=== PATIENT | male | born 1975 | race Caucasian/White ===

== ENCOUNTER 2016-10-03 11:44 | Emergency (ER) | payer OTHER ==
[~2016-10-03] VITALS: Ht 167.6 cm; Wt 74.2 kg
[2016-10-03 11:52] VITALS: BP 149/88; PULSE 62; RESP 16; TEMP 97.7; O2SAT 100
[2016-10-03 12:07] LABS: BLOOD, URINE LARGE (NEG); GLUCOSE,URINE NEG (NEG); KETONE, URINE NEG (NEG); NITRITE,URINE NEG (NEG)
[2016-10-03 12:09] LABS: METHOD OF COLLECTION CLEAN CATCH; URINE COLOR YELLOW (YELLW/STRAW)
[2016-10-03 12:12] LABS: COMMENT (UR) CULT NOT INDICATED; CULTURE IF INDICATED CULT NOT INDICATED
[2016-10-03] MEDS ORDERED: SODIUM CHLORIDE 0.9% FLUSH 10 ML FLUSH IV FLUSH PRN (12:45)
[2016-10-03] MEDS ORDERED: DICYCLOMINE HCL 20 MG/2 ML VIAL IM ONE (12:45)
[2016-10-03] MEDS ORDERED: ONDANSETRON HCL 4 MG/2 ML VIAL IVP ONE (12:45)
[2016-10-03] MEDS ORDERED: PANTOPRAZOLE SODIUM 40 MG VIAL IVP ONE (12:45)
--- NOTE | 2016-10-03 12:50 | PD ---
HPI . Abdominal pain Chief Complaint: Abdominal Pain Time Seen by Provider: 12:44 Travel History International Travel<30 days: No Contact w/Intl Traveler<30days: No Traveled to known affect area: No History of Present Illness HPI Patient presents with abdominal pain which started about 7:00 this morning. He describes upper abdominal pain. He states that it is sharp and is rated as 10/ 10. Pepto-Bismol caused no relief. As no exacerbating factors. He states his pain is getting progressively worse. It is associated with nausea but no vomiting or diarrhea or constipation. Last normal bowel movement was this morning. He denies any urinary tract symptoms. He denies any previous similar history. [facility] Past Medical History Medical History: Denies Significant Hx Diminished Hearing: No Tetanus Vaccination: Unknown Past Surgical History Surgical History: No Previous Surgery Social History Alcohol Use: Yes (SOC) Tobacco Use: Yes (1 PPD) Substance Use: No Allergies-Medications (Allergen,Severity, Reaction): Coded Allergies: No Known Allergies (Unverified , 10/03/16) Reported Meds & Prescriptions Reported Meds & Active Scripts Active No Active Prescriptions or Reported Medications Review of Systems Except as stated in HPI: all other systems reviewed are Neg General / Constitutional: No: Fever, Chills Gastrointestinal: Positive: Nausea, Abdominal Pain, No: Vomiting, Diarrhea, Constipation Genitourinary: No: Urgency, Frequency, Dysuria Physical Exam Narrative GENERAL: Awake and alert in no acute distress. SKIN: Warm and dry. HEAD: Atraumatic. Normocephalic. EYES: Pupils equal and round. Sclera are anicteric. Extraocular muscle intact. ENT: No nasal bleeding or discharge. Mucous membranes pink and moist. NECK: Trachea midline. Neck is supple. CARDIOVASCULAR: Regular rate and rhythm. Heart sounds are normal. RESPIRATORY: No accessory muscle use. Lungs are clear with full air movement throughout. GASTROINTESTINAL: Abdomen soft. Bowel sounds are increased. He has diffuse, mild upper abdominal tenderness. Negative Clark sign. Nondistended. MUSCULOSKELETAL: No obvious deformities. No edema. NEUROLOGICAL: Awake and alert. No obvious cranial nerve deficits. Motor grossly within normal limits. Normal speech. PSYCHIATRIC: Appropriate mood and affect; insight and judgment normal. Data Data Last Documented VS Vital Signs Date Time Temp Pulse Resp B/P Pulse Ox O2 Delivery O2 Flow Rate FiO2 10/03/16 11:52 97.7 62 16 149/88 100 Orders Urinalysis - C+S If Indicated (10/03/16 11:48) Complete Blood Count With Diff (10/03/16 12:44) Comprehensive Metabolic Panel (10/03/16 12:44) Lipase (10/03/16 12:44) Ct Abd/Pel W Iv Contrast(Rout) (10/03/16 12:44) Iv Access Insert/Monitor (10/03/16 12:44) Ondansetron Inj (Zofran Inj) (10/03/16 12:45) Pantoprazole Inj (Protonix Inj) (10/03/16 12:45) Sodium Chloride 0.9% Flush (Ns Flush) (10/03/16 12:45) Dicyclomine Inj (Bentyl Inj) (10/03/16 12:45) Iohexol 350 Inj (Omnipaque 350 Inj) (10/03/16 13:57) Labs Laboratory Tests Test 10/03/16 10/03/16 11:56 13:05 Urine Collection Type CLEAN CATCH Urine Color YELLOW Urine Turbidity CLEAR Urine pH 7.0 Urine Specific [facility] 1.022 Urine Protein 30 mg/dL Urine Glucose (UA) NEG mg/dL Urine Ketones NEG mg/dL Urine Occult Blood LARGE Urine Nitrite NEG Urine Bilirubin NEG Urine Leukocyte Esterase NEG Urine RBC 25-49 /hpf Microscopic Urinalysis Comment CULT NOT INDICATED White Blood Count 11.0 TH/MM3 Red Blood Count 4.56 MIL/MM3 Hemoglobin 13.6 GM/DL Hematocrit 40.5 % Mean Corpuscular Volume 88.8 FL Mean Corpuscular Hemoglobin 29.8 PG Mean Corpuscular Hemoglobin 33.6 % Concent Red Cell Distribution Width 12.6 % Platelet Count 300 TH/MM3 Mean Platelet Volume 9.1 FL Neutrophils (%) (Auto) 85.1 % Lymphocytes (%) (Auto) 10.5 % Monocytes (%) (Auto) 3.7 % Eosinophils (%) (Auto) 0.1 % Basophils (%) (Auto) 0.6 % Neutrophils # (Auto) 9.3 TH/MM3 Lymphocytes # (Auto) 1.2 TH/MM3 Monocytes # (Auto) 0.4 TH/MM3 Eosinophils # (Auto) 0.0 TH/MM3 Basophils # (Auto) 0.1 TH/MM3 CBC Comment DIFF FINAL Differential Comment Sodium Level 141 MEQ/L Potassium Level 4.0 MEQ/L Chloride Level 103 MEQ/L Carbon Dioxide Level 29.4 MEQ/L Anion Gap 9 MEQ/L Blood Urea Nitrogen 14 MG/DL Creatinine 1.10 MG/DL Estimat Glomerular Filtration 73 ML/MIN Rate Random Glucose 106 MG/DL Calcium Level 9.1 MG/DL Total Bilirubin 0.5 MG/DL Aspartate Amino Transf 21 U/L (AST/SGOT) Alanine Aminotransferase 27 U/L (ALT/SGPT) Alkaline Phosphatase 55 U/L Total Protein 7.7 GM/DL Albumin 4.1 GM/DL Lipase 99 U/L [facility] Medical Decision Making Medical Screen Exam Complete: Yes Emergency Medical Condition: Yes Differential Diagnosis Differential diagnosis of abdominal pain includes but is not limited to gastritis, pancreatitis, hepatitis, gastroenteritis, gallbladder disease, constipation, urinary retention, UTI, peptic ulcer disease, diverticulitis or appendicitis Narrative Course Patient presents with upper abdominal pain. He had a UA done in triage which shows blood. If symptoms are not really characteristic of kidney colic but he does have hematuria. CBC & BMP Diagram 10/03/16 13:05 CT abd/pelvis: 1. Common bile duct mildly prominent 6 mm with questionable filling defect in the distal common bile duct raising the possibility of choledocholithiasis. Abdominal ultrasound recommended if patient is having symptoms of biliary tract abnormalities. 2. The remainder of the abdomen is otherwise unremarkable. The CT was independently viewed by me. He has a lot of gas and stool throughout the bowel. LFTs and lipase are normal. He has no right upper quadrant tenderness and a negative Clark sign. Vital Signs Date Time Temp Pulse Resp B/P Pulse Ox O2 Delivery O2 Flow Rate FiO2 10/03/16 11:52 97.7 62 16 149/88 100 Diagnosis Primary Impression: Abdominal pain Qualified Code: R10.84 - Generalized abdominal pain Patient Instructions: Abdominal Pain (ED), Constipation (DC), General Instructions Additional Instructions: Milk of magnesia nightly until your bowels feel like they are adequately emptied Scripts No Active Prescriptions or Reported Meds Disposition: 01 DISCHARGE HOME Condition: Stable Martha Galeas MD October 03, 2016 12:50
[2016-10-03 13:11] LABS: AUTOMATED NEUTROPHIL # 9.3 TH/MM3 (1.8-7.7); BASOPHIL # 0.1 TH/MM3 (0-0.2); BASOPHIL % 0.6 % (0.0-2.0); EOSINOPHIL % 0.1 % (0.0-4.0); HEMATOCRIT 40.5 % (39.0-51.0); HEMO FLAGS DIFF FINAL; LYMPH % 10.5 % (9.0-44.0); LYMPHOCYTE # 1.2 TH/MM3 (1.0-4.8); MEAN CELL VOLUME 88.8 FL (80.0-100.0); MEAN CORPUSCULAR HEMOGLOBIN 29.8 PG (27.0-34.0); MEAN CORPUSCULAR HGB CONC 33.6 % (32.0-36.0); MONO % 3.7 % (0.0-8.0); NEUT % 85.1 % (16.0-70.0); PLATELET COUNT 300 TH/MM3 (150-450); RED BLOOD COUNT 4.56 MIL/MM3 (4.50-5.90); RED CELL DISTRIBUTION WIDTH 12.6 % (11.6-17.2)
[2016-10-03 13:20] LABS: CHLORIDE 103 MEQ/L (98-107); SODIUM (NA) 141 MEQ/L (136-145)
[2016-10-03 13:23] LABS: ANION GAP 9 MEQ/L (5-15); BICARBONATE 29.4 MEQ/L (21.0-32.0)
[2016-10-03 13:24] LABS: BLOOD UREA NITROGEN 14 MG/DL (7-18)
[2016-10-03 13:26] LABS: ALT (GPT) 27 U/L (12-78); AST (GOT) 21 U/L (15-37); GLOMERULAR FILTRATION RATE 73 ML/MIN (>89)
[2016-10-03 13:28] LABS: TOTAL BILIRUBIN ADULT 0.5 MG/DL (0.2-1.0)
[2016-10-03 13:29] LABS: ALKALINE PHOSPHATASE 55 U/L (45-117)
[2016-10-03] MEDS ORDERED: IOHEXOL 350 MG/ML 10 ML VIAL (for RAD DIAG) IV ONE (13:57)
--- NOTE | 2016-10-03 14:18 | RADHPO ---
EXAM DATE/TIME: 10/03/2016 13:49 [facility] COMPARISON: No previous studies available for comparison. INDICATIONS : Mid abdomen pain. IV CONTRAST: 100 cc Omnipaque 350 (iohexol) IV ORAL CONTRAST: No oral contrast ingested. RADIATION DOSE: 7.55 CTDIvol (mGy) MEDICAL HISTORY : None SURGICAL HISTORY : None. ENCOUNTER: Initial ACUITY: 1 day PAIN SCALE: 5/10 LOCATION: Bilateral abdomen. TECHNIQUE: Volumetric scanning of the abdomen and pelvis was performed. Using automated exposure control and ad justment of the mA and/or kV according to patient size, radiation dose was kept as low as reasonably achievable to obtain optimal diagnostic quality images. FINDINGS: LOWER LUNGS: The visualized lower lungs are clear. LIVER: Homogeneous density without lesion. There is no dilation of the biliary tree. No calcified gallston es. Common bile duct slightly prominent measuring 6 mm. Questionable filling defect distally. SPLEEN: Normal size without lesion. PANCREAS: Within normal limits. KIDNEYS: Normal in size and shape. There is no mass, stone or hydronephrosis. ADRENAL GLANDS: Within normal limits. VASCULAR: There is no aortic aneurysm. BOWEL/MESENTERY: The stomach, small bowel, and colon demonstrate no acute abnormality. There is no free intraperitone al air or fluid. ABDOMINAL WALL: Within normal limits. RETROPERITONEUM: There is no lymphadenopathy. BLADDER: No wall thickening or mass. REPRODUCTIVE: Within normal limits. INGUINAL: There is no lymphadenopathy or hernia. MUSCULOSKELETAL: Within normal limits for patient age. CONCLUSION: 1. Common bile duct mildly prominent 6 mm with questionable filling defect in the distal common bile duct raising the possibility of choledocholithiasis. Abdominal ultrasound recommended if patient is h aving symptoms of biliary tract abnormalities. 2. The remainder of the abdomen is otherwise unremarkable. Ramon Adams MD on October 03, 2016 at 14:13 Board Certified Radiologist. This report was verified electronically.
[2016-10-03 14:32] VITALS: BP 118/64
== END 2016-10-03 14:36 | disposition home or self-care (01) ==
LOC: PHED 11:44
DX: R10.84 Generalized abdominal pain (principal); F17.210 Nicotine dependence, cigarettes, uncomplicated
CPT/HCPCS: 74177; 80053; 81001; 83690; 85025; 96372; 96374; 96375; 99284; C9113; J0500; J2405; Q9967